=== PATIENT | male | born 1955 | race Caucasian/White ===

== ENCOUNTER 2018-11-22 09:06 | Inpatient (IN) | payer SELFPAY ==
[~2018-11-22] VITALS: Ht 160 cm; Wt 58.2 kg
[2018-11-22] MEDS ORDERED: SODIUM CHLORIDE 0.9% 1,000 ML IV ONE (09:32)
[2018-11-22] MEDS ORDERED: LORAZEPAM 2MG/ML CPJ IV STA (09:32)
[2018-11-22 10:09] LABS: BASOPHILS % 0.8 % (0.0-2.0); EOSINOPHILS % 7.1 % (0.0-5.0); HEMATOCRIT. 30.8 % (42.0-52.0); HEMOGLOBIN. 10.3 g/dL (14.0-18.0); LYMPHOCYTES % 11.7 % (20.0-50.0); MEAN CORPUSCULAR HEMOGLOBIN 28.6 pg (28.0-32.0); MEAN CORPUSCULAR VOLUME 85.2 fL (80.0-94.0); MEAN PLATELET VOLUME 7.9 fl (7.4-10.4); MONOCYTES % 9.4 % (2.0-8.0); PLATELET 120 x1000/uL (130-400); RED BLOOD CELL COUNT 3.62 mill/uL (4.7-6.1); RED CELL DISTRIBUTION WIDTH 23.4 % (11.6-14.6)
[2018-11-22 10:11] LABS: INR 1.2; PARTIAL THROMBOPLASTIN TIME 34.8 sec (23.4-31.0); PROTHROMBIN TIME 12.6 sec (9.6-11.0)
[2018-11-22 10:12] LABS: CHLORIDE 112 mEq/L (98-107)
[2018-11-22 10:16] LABS: ETHANOL BLOOD < 10 mg/dL
[2018-11-22 10:49] LABS: CLARITY URINE CLEAR (CLEAR); COLOR URINE YELLOW (YELLOW); KETONES URINE NEGATIVE (NEGATIVE); LEUKOCYTE ESTERASE URINE NEGATIVE (NEGATIVE); NITRITE URINE NEGATIVE (NEGATIVE); OCCULT BLOOD URINE NEGATIVE (NEGATIVE); PH URINE 7.5 (4.5-8.0); PROTEIN URINE TRACE (NEGATIVE); SPECIFIC GRAVITY URINE 1.017 (1.005-1.030)
[2018-11-22 11:10] LABS: *AMPHETAMINES SCREEN URINE NEGATIVE (NEGATIVE); *BARBITURATES SCREEN URINE NEGATIVE (NEGATIVE); *BENZODIAZEPINES SCREEN URINE NEGATIVE (NEGATIVE); *COCAINE SCREEN URINE NEGATIVE (NEGATIVE); METHADONE URINE SCREEN NEGATIVE (NEGATIVE); OPIATES URINE SCREEN NEGATIVE (NEGATIVE); PHENCYCLIDINE URINE SCREEN NEGATIVE (NEGATIVE)
[2018-11-22 11:11] LABS: CANNABINOID URINE SCREEN NEGATIVE (NEGATIVE)
[2018-11-22 12:16] LABS: PLATELET ESTIMATE DECREASED
[2018-11-22] MEDS ORDERED: LEVOFLOXACIN 750MG PREMIX 150 ML IV ONE (12:30)
[2018-11-22] MEDS ORDERED: SODIUM CHLORIDE 0.9% 1000ML BAG (SEPSIS BOLUS) IV ONE (12:30)
[2018-11-22] MEDS ORDERED: LACTULOSE 20G/30ML UDC PO ONE (12:30)
[2018-11-22 17:00] VITALS: BP 116/61
[2018-11-22 17:21] VITALS: BP 130/70
[2018-11-22] MEDS ORDERED: LACT10SO PO (17:47)
[2018-11-22 18:00] VITALS: BP 124/70
[2018-11-22] MEDS ORDERED: IPRATROPIUM/ALBUTEROL 0.5-3(2.5)MG/3ML NEB HHN PRN (18:15)
[2018-11-22] MEDS ORDERED: CLONIDINE 0.1MG TABLET PO PRN (18:15)
[2018-11-22] MEDS ORDERED: LEVOFLOXACIN 500MG PREMIX 100 ML IV SCH (18:15)
[2018-11-22] MEDS ORDERED: MAGNESIUM/ALUMINUM HYDROXIDE/SIMETHICONE 30ML UDC PO PRN (18:15)
[2018-11-22] MEDS ORDERED: DOCUSATE SODIUM 100MG CAPSULE PO PRN (18:15)
[2018-11-22] MEDS ORDERED: DIPHENHYDRAMINE 50MG/ML VIAL IV PRN (18:15)
[2018-11-22] MEDS ORDERED: ONDANSETRON HCL 4MG/2ML INJ IV PRN (18:15)
[2018-11-22] MEDS ORDERED: HYDROCODONE/ACETAMINOPHEN 10/325MG TABLET PO PRN (18:15)
[2018-11-22] MEDS ORDERED: GUAIFENESIN 200MG/10ML SUGAR FREE UDC PO PRN (18:15)
[2018-11-22] MEDS ORDERED: NA PHOS,M-B/NA PHOS,DI-BA ENEMA 118ML PR PRN (18:15)
[2018-11-22] MEDS ORDERED: MORPHINE SULFATE 2 MG/ML CPJ (NOT FOR IM USE) IV PRN (18:15)
[2018-11-22] MEDS ORDERED: ACETAMINOPHEN 325MG TABLET PO PRN (18:15)
[2018-11-22] MEDS ORDERED: LORAZEPAM 2MG/ML CPJ IV PRN (18:15)
[2018-11-22] MEDS ORDERED: DEXTROSE 50% WATER 50ML SYRINGE IV PRN (18:15)
[2018-11-22] MEDS ORDERED: HYDRALAZINE 20MG/ML VIAL IV PRN (18:15)
[2018-11-22 20:00] VITALS: BP 117/59
[2018-11-22] MEDS: ENOXAPARIN 40MG/0.4ML SYR SUBCUT SCH (21:15)
[2018-11-22] MEDS: INSULIN LISPRO 100 UNITS/ML SUBCUT SCH (21:17)
[2018-11-22] MEDS: BLOOD SUGAR DIAGNOSTIC STRIP TEST SCH (21:17)
[2018-11-22 22:00] VITALS: BP 109/62
[2018-11-22] MEDS: SODIUM CHLORIDE 0.9% INJ 3ML FLUSH IVF SCH (22:11)
[2018-11-23] VITALS (14 sets, daily range): BP systolic 97–130; BP diastolic 41–79
[2018-11-23] MEDS: LACTULOSE 20G/30ML UDC PO SCH ×5 (00:33→23:27)
[2018-11-23 00:36] LABS: CREATINE KINASE 106 IU/L (39-308)
[2018-11-23 00:38] LABS: CREATINE KINASE MB FRACTION 1.4 ng/mL (0.5-3.6)
[2018-11-23] MEDS: SODIUM CHLORIDE 0.9% INJ 3ML FLUSH IVF SCH ×3 (06:15→23:27)
[2018-11-23] MEDS: BLOOD SUGAR DIAGNOSTIC STRIP TEST SCH ×4 (06:16→20:27)
[2018-11-23 06:22] LABS: CHLORIDE 115 mEq/L (98-107)
[2018-11-23 06:26] LABS: BASOPHILS % 1.1 % (0.0-2.0); EOSINOPHILS % 8.4 % (0.0-5.0); HEMATOCRIT. 26.2 % (42.0-52.0); HEMOGLOBIN. 8.9 g/dL (14.0-18.0); LYMPHOCYTES % 13.7 % (20.0-50.0); MEAN CORPUSCULAR HEMOGLOBIN 28.8 pg (28.0-32.0); MEAN CORPUSCULAR VOLUME 84.7 fL (80.0-94.0); MEAN PLATELET VOLUME 7.6 fl (7.4-10.4); NEUTROPHILS % 64.8 % (40.0-76.0); PLATELET 97 x1000/uL (130-400); RED CELL DISTRIBUTION WIDTH 23.2 % (11.6-14.6)
[2018-11-23 06:33] LABS: CREATINE KINASE 108 IU/L (39-308); T4 FREE 1.12 ng/dL (0.76-1.46)
[2018-11-23 06:41] LABS: CREATINE KINASE MB FRACTION 1.2 ng/mL (0.5-3.6)
[2018-11-23] MEDS: INSULIN LISPRO 100 UNITS/ML SUBCUT SCH ×4 (07:20→20:27)
[2018-11-23] MEDS: ASPIRIN 81MG EC TABLET PO SCH (08:09)
[2018-11-23] MEDS ORDERED: LEVOFLOXACIN 250MG PREMIX 50 ML IV SCH (13:00)
[2018-11-23] MEDS ORDERED: AMA1 PO (16:57)
[2018-11-23] MEDS ORDERED: PROP10TA10 PO (16:57)
[2018-11-23] MEDS ORDERED: SITA50TA3 PO (16:57)
[2018-11-23] MEDS ORDERED: AMLO2.5T45 PO (16:57)
[2018-11-23] MEDS ORDERED: FURO20TA4 PO (16:57)
[2018-11-23] MEDS ORDERED: SPIR50TA5 PO (16:57)
[2018-11-23] MEDS ORDERED: FERR-71 PO (16:57)
[2018-11-23] MEDS ORDERED: METF500T PO (16:57)
[2018-11-23] MEDS ORDERED: OMEP40CA34 PO (16:57)
[2018-11-23] MEDS ORDERED: ATOR10TA69 PO (16:59)
[2018-11-23] MEDS: ENOXAPARIN 40MG/0.4ML SYR SUBCUT SCH (20:00)
[2018-11-24] VITALS (13 sets, daily range): BP systolic 93–124; BP diastolic 47–77
[2018-11-24 05:55] LABS: BASOPHILS % 0.8 % (0.0-2.0); EOSINOPHILS % 8.7 % (0.0-5.0); HEMOGLOBIN. 8.8 g/dL (14.0-18.0); LYMPHOCYTES % 14.8 % (20.0-50.0); MEAN CORPUSCULAR HEMOGLOBIN 28.8 pg (28.0-32.0); MEAN PLATELET VOLUME 7.7 fl (7.4-10.4); MONOCYTES % 11.4 % (2.0-8.0); NEUTROPHILS % 64.3 % (40.0-76.0); PLATELET 92 x1000/uL (130-400); RED BLOOD CELL COUNT 3.05 mill/uL (4.7-6.1); RED CELL DISTRIBUTION WIDTH 22.3 % (11.6-14.6)
[2018-11-24 06:03] LABS: CHLORIDE 113 mEq/L (98-107)
[2018-11-24] MEDS: LACTULOSE 20G/30ML UDC PO SCH ×3 (06:03→18:53)
[2018-11-24] MEDS: SODIUM CHLORIDE 0.9% INJ 3ML FLUSH IVF SCH ×3 (06:03→21:06)
[2018-11-24] MEDS: BLOOD SUGAR DIAGNOSTIC STRIP TEST SCH ×4 (06:07→21:06)
[2018-11-24] MEDS: INSULIN LISPRO 100 UNITS/ML SUBCUT SCH ×4 (07:20→21:00)
[2018-11-24] MEDS: ASPIRIN 81MG EC TABLET PO SCH (09:54)
[2018-11-24] MEDS: LEVOFLOXACIN 500MG PREMIX 100 ML IV SCH (13:52)
[2018-11-25] VITALS (10 sets, daily range): BP systolic 98–137; BP diastolic 44–109
[2018-11-25] MEDS: LACTULOSE 20G/30ML UDC PO SCH ×4 (00:16→18:46)
[2018-11-25] MEDS: BLOOD SUGAR DIAGNOSTIC STRIP TEST SCH ×4 (05:53→21:34)
[2018-11-25] MEDS: SODIUM CHLORIDE 0.9% INJ 3ML FLUSH IVF SCH ×3 (05:53→21:34)
[2018-11-25 06:54] LABS: BASOPHILS % 0.9 % (0.0-2.0); EOSINOPHILS % 10.7 % (0.0-5.0); HEMATOCRIT. 27.8 % (42.0-52.0); HEMOGLOBIN. 9.9 g/dL (14.0-18.0); LYMPHOCYTES % 14.1 % (20.0-50.0); MEAN CORPUSCULAR VOLUME 84.4 fL (80.0-94.0); MONOCYTES % 10.3 % (2.0-8.0); PLATELET 103 x1000/uL (130-400); RED BLOOD CELL COUNT 3.29 mill/uL (4.7-6.1); RED CELL DISTRIBUTION WIDTH 22.6 % (11.6-14.6)
[2018-11-25 06:58] LABS: CHLORIDE 111 mEq/L (98-107)
[2018-11-25] MEDS: INSULIN LISPRO 100 UNITS/ML SUBCUT SCH ×4 (07:20→21:45)
[2018-11-25] MEDS: ASPIRIN 81MG EC TABLET PO SCH (08:14)
[2018-11-25] MEDS: LEVOFLOXACIN 500MG PREMIX 100 ML IV SCH (12:07)
[2018-11-26] VITALS: BP 120/69
[2018-11-26] MEDS: LACTULOSE 20G/30ML UDC PO SCH ×4 (00:45→18:43)
[2018-11-26 04:00] VITALS: BP 112/68
[2018-11-26] MEDS: SODIUM CHLORIDE 0.9% INJ 3ML FLUSH IVF SCH ×2 (06:37→13:49)
[2018-11-26] MEDS: INSULIN LISPRO 100 UNITS/ML SUBCUT SCH ×3 (06:37→17:16)
[2018-11-26] MEDS: BLOOD SUGAR DIAGNOSTIC STRIP TEST SCH ×3 (06:37→17:11)
[2018-11-26 08:00] VITALS: BP 116/69
[2018-11-26] MEDS: ASPIRIN 81MG EC TABLET PO SCH (08:21)
[2018-11-26 12:00] VITALS: BP 124/70
[2018-11-26 15:40] VITALS: BP 119/66
[2018-11-26 16:00] VITALS: BP 119/66
[2018-11-26] MEDS: LEVOFLOXACIN 500MG PREMIX 100 ML IV SCH (16:07)
[2018-11-27] MEDS ORDERED: LEVOFLOXACIN 500MG TABLET PO SCH (11:00)
== END 2018-11-26 18:55 | disposition home or self-care (01) | DRG 52 ==
LOC: ER 09:21 → 3WST 13:13 → ENRESERV 15:16 → 3WST 19:37 → 5WST 11-25 14:41
PROVIDERS: ADMIT Internal Medicine; ATTEND Internal Medicine
DX: G93.41 Metabolic encephalopathy (principal); R65.11 Systemic inflammatory response syndrome (SIRS) of non-infectious origin with acute organ dysfunction; J69.0 Pneumonitis due to inhalation of food and vomit; J91.8 Pleural effusion in other conditions classified elsewhere; E72.20 Disorder of urea cycle metabolism, unspecified; R18.8 Other ascites; D64.9 Anemia, unspecified; K74.60 Unspecified cirrhosis of liver; F10.10 Alcohol abuse, uncomplicated; D69.6 Thrombocytopenia, unspecified; E11.9 Type 2 diabetes mellitus without complications; I10 Essential (primary) hypertension; Z79.84 Long term (current) use of oral hypoglycemic drugs; Z79.899 Other long term (current) drug therapy
CPT/HCPCS: 36415; 71045; 74176; 80048; 80305; 80320; 81003; 82140; 82550; 82553; 82962; 83605; 83735; 84439; 84443; 84484; 86850; 86900; 93005; 97161; 99291; J1650; J1815; J1956; J2060; J7030; G0480

== ENCOUNTER 2019-07-28 08:49 | Inpatient (IN) | payer MEDICARE, OTHER ==
[~2019-07-28] VITALS: Ht 167.6 cm; Wt 57.3 kg
[~2019-07-28 08:49] MED LIST: AMA1 PO; AMLO2.5T45 PO; ATOR10TA69 PO; FERR-71 PO; FURO20TA4 PO; LACT10SO PO; METF500T PO; OMEP40CA12 PO; PROP10TA10 PO; SITA50TA3 PO; SPIR50TA5 PO
[2019-07-28 09:22] LABS: BASOPHILS % 0.6 % (0.0-2.0); EOSINOPHILS % 2.1 % (0.0-5.0); HEMATOCRIT. 28.4 % (42.0-52.0); HEMOGLOBIN. 9.5 g/dL (14.0-18.0); LYMPHOCYTES % 7.1 % (20.0-50.0); MEAN CORPUSCULAR VOLUME 83.8 fL (80.0-94.0); MEAN PLATELET VOLUME 7.3 fl (7.4-10.4); MONOCYTES % 11.6 % (2.0-8.0); NEUTROPHILS % 78.6 % (40.0-76.0); PLATELET 180 x1000/uL (130-400); RED BLOOD CELL COUNT 3.38 mill/uL (4.7-6.1); RED CELL DISTRIBUTION WIDTH 17.2 % (11.6-14.6)
[2019-07-28 09:27] LABS: CHLORIDE 102 mEq/L (98-107)
[2019-07-28 09:31] LABS: ETHANOL BLOOD < 10 mg/dL
[2019-07-28] MEDS ORDERED: LACTULOSE 20G/30ML UDC PO ONE (10:00)
[2019-07-28 10:28] LABS: CLARITY URINE CLEAR (CLEAR); COLOR URINE YELLOW (YELLOW); KETONES URINE TRACE (NEGATIVE); LEUKOCYTE ESTERASE URINE TRACE (NEGATIVE); NITRITE URINE NEGATIVE (NEGATIVE); OCCULT BLOOD URINE NEGATIVE (NEGATIVE); PH URINE 5.5 (4.5-8.0); PROTEIN URINE TRACE (NEGATIVE); SPECIFIC GRAVITY URINE 1.014 (1.005-1.030); UROBILINOGEN URINE 0.2 E.U./dL (0.2-1.0)
[2019-07-28 10:58] LABS: *AMPHETAMINES SCREEN URINE NEGATIVE (NEGATIVE)
[2019-07-28 11:00] LABS: *BARBITURATES SCREEN URINE NEGATIVE (NEGATIVE); *BENZODIAZEPINES SCREEN URINE NEGATIVE (NEGATIVE); *COCAINE SCREEN URINE NEGATIVE (NEGATIVE); METHADONE URINE SCREEN NEGATIVE (NEGATIVE); OPIATES URINE SCREEN NEGATIVE (NEGATIVE)
[2019-07-28 11:01] LABS: CANNABINOID URINE SCREEN NEGATIVE (NEGATIVE); PHENCYCLIDINE URINE SCREEN NEGATIVE (NEGATIVE)
[2019-07-28] MEDS ORDERED: ONDANSETRON HCL 4MG/2ML INJ IV PRN (12:45)
[2019-07-28] MEDS ORDERED: ACETAMINOPHEN 325MG TABLET PO PRN (12:45)
[2019-07-28] MEDS ORDERED: HALOPERIDOL LACTATE 5MG/ML VIAL IM PRN (13:30)
[2019-07-28] MEDS ORDERED: SODIUM POLYSTYRENE SULFONATE 15 G/60 ML BOT PO ONE (14:00)
[2019-07-28 14:43] LABS: LDL CHOLESTEROL 44 mg/dL (5-100)
[2019-07-28 14:45] LABS: HDL CHOLESTEROL 58 mg/dL (40-59)
[2019-07-28] MEDS ORDERED: SODIUM POLYSTYRENE SULFONATE 15 G/60 ML BOT PO SCH (16:15)
[2019-07-28] MEDS ORDERED: LORAZEPAM 0.5MG TABLET PO PRN (17:00)
[2019-07-28 21:30] VITALS: BP 135/80
[2019-07-28 22:00] VITALS: BP 113/70
[2019-07-29] VITALS (11 sets, daily range): BP systolic 106–132; BP diastolic 52–80
[2019-07-29] MEDS: RISPERIDONE 1MG TABLET PO SCH ×3 (00:21→22:19)
[2019-07-29] MEDS: LACTULOSE 20G/30ML UDC PO SCH ×4 (00:22→22:18)
[2019-07-29 07:37] LABS: MEAN CORPUSCULAR HEMOGLOBIN 28.3 pg (28.0-32.0); MEAN CORPUSCULAR VOLUME 84.4 fL (80.0-94.0); MEAN PLATELET VOLUME 7.4 fl (7.4-10.4); PLATELET 143 x1000/uL (130-400); RED BLOOD CELL COUNT 2.84 mill/uL (4.7-6.1); RED CELL DISTRIBUTION WIDTH 17.5 % (11.6-14.6)
[2019-07-29 08:14] LABS: CHLORIDE 106 mEq/L (98-107)
[2019-07-29] MEDS: HEPARIN 5000 UNITS/ML VIAL SUBCUT SCH (09:32)
[2019-07-29 11:11] LABS: TOTAL IRON BINDING CAPACITY 368 ug/dL (250-450)
[2019-07-29 12:07] LABS: INR 1.1; PARTIAL THROMBOPLASTIN TIME 39.8 sec (23.4-31.0); PROTHROMBIN TIME 12.3 sec (9.6-11.0)
[2019-07-29 12:25] LABS: FERRITIN 57 ng/mL (22-322)
[2019-07-29 12:36] LABS: HEPATITIS B SURFACE ANTIGEN NEGATIVE
[2019-07-29 13:05] LABS: HEPATITIS A AB IGM NEGATIVE (NEGATIVE)
[2019-07-29] MEDS ORDERED: SODIUM BICARBONATE 4% (2.4MEQ) 5ML VIAL IV ONE (13:13)
[2019-07-29] MEDS ORDERED: LIDOCAINE HCL 1% 20ML VIAL (Pyxis) INJ ONE (13:13)
[2019-07-29 15:37] LABS: PLATELET ESTIMATE NORMAL
[2019-07-29] MEDS: PROPRANOLOL HCL 10MG TABLET PO SCH (22:19)
[2019-07-30] VITALS (12 sets, daily range): BP systolic 91–122; BP diastolic 57–74
[2019-07-30] MEDS: LACTULOSE 20G/30ML UDC PO SCH ×3 (06:21→22:10)
[2019-07-30 07:30] LABS: INR 1.2; PROTHROMBIN TIME 12.5 sec (9.6-11.0)
[2019-07-30 07:38] LABS: BASOPHILS % 0.8 % (0.0-2.0); EOSINOPHILS % 3.9 % (0.0-5.0); HEMATOCRIT. 24.9 % (42.0-52.0); HEMOGLOBIN. 8.4 g/dL (14.0-18.0); LYMPHOCYTES % 7.2 % (20.0-50.0); MEAN CORPUSCULAR HEMOGLOBIN 28.3 pg (28.0-32.0); MEAN CORPUSCULAR VOLUME 84.3 fL (80.0-94.0); MEAN PLATELET VOLUME 7.3 fl (7.4-10.4); NEUTROPHILS % 78.1 % (40.0-76.0); PLATELET 148 x1000/uL (130-400); RED BLOOD CELL COUNT 2.96 mill/uL (4.7-6.1); RED CELL DISTRIBUTION WIDTH 17.4 % (11.6-14.6)
[2019-07-30 07:51] LABS: CHLORIDE 108 mEq/L (98-107)
[2019-07-30] MEDS: RISPERIDONE 1MG TABLET PO SCH ×2 (09:46→21:53)
[2019-07-30] MEDS: PROPRANOLOL HCL 10MG TABLET PO SCH ×2 (09:46→21:00)
[2019-07-30] MEDS: ASPIRIN 81MG TABLET PO SCH (10:57)
[2019-07-30] MEDS: HEPARIN 5000 UNITS/ML VIAL SUBCUT SCH (21:51)
[2019-07-31] VITALS (11 sets, daily range): BP systolic 92–116; BP diastolic 39–68
[2019-07-31] MEDS: LACTULOSE 20G/30ML UDC PO SCH ×2 (05:32→15:02)
[2019-07-31 07:35] LABS: BASOPHILS % 1.2 % (0.0-2.0); HEMATOCRIT. 25.1 % (42.0-52.0); HEMOGLOBIN. 8.4 g/dL (14.0-18.0); LYMPHOCYTES % 8.7 % (20.0-50.0); MEAN CORPUSCULAR VOLUME 83.5 fL (80.0-94.0); MEAN PLATELET VOLUME 7.4 fl (7.4-10.4); MONOCYTES % 11.4 % (2.0-8.0); NEUTROPHILS % 72.7 % (40.0-76.0); PLATELET 146 x1000/uL (130-400)
[2019-07-31 07:39] LABS: INR 1.1; PROTHROMBIN TIME 11.4 sec (9.6-11.0)
[2019-07-31 07:47] LABS: CHLORIDE 105 mEq/L (98-107)
[2019-07-31] MEDS: HEPARIN 5000 UNITS/ML VIAL SUBCUT SCH (08:18)
[2019-07-31] MEDS: PROPRANOLOL HCL 10MG TABLET PO SCH (08:18)
[2019-07-31] MEDS: ASPIRIN 81MG TABLET PO SCH (08:19)
[2019-07-31] MEDS: RISPERIDONE 1MG TABLET PO SCH (08:19)
[2019-07-31] MEDS ORDERED: PROP10TA10 PO (16:39)
[2019-07-31] MEDS ORDERED: LACT10SO7 PO (16:39)
[2019-07-31] MEDS ORDERED: ASPI-1160 PO (16:39)
[2019-08-09] MEDS ORDERED: LACT10SO MT (10:50)
[2019-08-09] MEDS ORDERED: PROP10TA10 PO (10:50)
[2019-08-09] MEDS ORDERED: SPIR50TA5 PO (10:50)
[2019-08-09] MEDS ORDERED: FURO-151 MT (10:50)
[2019-08-09] MEDS ORDERED: OMEP40CA12 PO (10:50)
== END 2019-07-31 18:02 | disposition home or self-care (01) | DRG 441 ==
LOC: ER 08:49 → ENRESERV 19:20 → 3WST 20:51
PROVIDERS: ADMIT Internal Medicine; ATTEND Internal Medicine
PROC: 0W9G3ZZ Drainage of Peritoneal Cavity, Percutaneous Approach (ICD-10-PCS; principal; 2019-07-29)
DX: K72.90 Hepatic failure, unspecified without coma (principal); K76.7 Hepatorenal syndrome; G93.41 Metabolic encephalopathy; N17.9 Acute kidney failure, unspecified; J98.11 Atelectasis; I85.10 Secondary esophageal varices without bleeding; I74.5 Embolism and thrombosis of iliac artery; E87.1 Hypo-osmolality and hyponatremia; E72.20 Disorder of urea cycle metabolism, unspecified; E87.5 Hyperkalemia; K70.31 Alcoholic cirrhosis of liver with ascites; R16.1 Splenomegaly, not elsewhere classified; I12.9 Hypertensive chronic kidney disease with stage 1 through stage 4 chronic kidney disease, or unspecified chronic kidney disease; E11.22 Type 2 diabetes mellitus with diabetic chronic kidney disease; N18.9 Chronic kidney disease, unspecified; D64.9 Anemia, unspecified; E83.41 Hypermagnesemia; K80.20 Calculus of gallbladder without cholecystitis without obstruction; E87.70 Fluid overload, unspecified; F10.20 Alcohol dependence, uncomplicated; Z79.899 Other long term (current) drug therapy
CPT/HCPCS: 36415; 49083; 71045; 74176; 80053; 80061; 80076; 80305; 80320; 81003; 82105; 82140; 82248; 82728; 82962; 83540; 83550; 83615; 83735; 84484; 85025; 86705; 86709; 86803; 87340; 93005; 93306; 96372; 97116; 97162; 97166; 99285; J1630; J1644; J3490; G0480

== ENCOUNTER 2019-08-15 05:14 | Inpatient (IN) | payer MEDICARE, OTHER ==
[~2019-08-15] VITALS: Ht 165.1 cm; Wt 62.1 kg
[~2019-08-15 05:14] MED LIST changes: -AMLO2.5T45 PO; +ASPI-1160 PO; +FURO-151 MT; +LACT10SO MT; -LACT10SO PO; +LACT10SO7 PO; -PROP10TA10 PO
[2019-08-15 07:31] LABS: HEMATOCRIT. 27.9 % (42.0-52.0); HEMOGLOBIN. 9.5 g/dL (14.0-18.0); MEAN CORPUSCULAR HEMOGLOBIN 28.3 pg (28.0-32.0); MEAN CORPUSCULAR VOLUME 83.2 fL (80.0-94.0); MEAN PLATELET VOLUME 7.5 fl (7.4-10.4); PLATELET 163 x1000/uL (130-400); RED BLOOD CELL COUNT 3.35 mill/uL (4.7-6.1)
[2019-08-15 07:38] LABS: CHLORIDE 100 mEq/L (98-107)
[2019-08-15 07:39] LABS: PROTHROMBIN TIME 11.1 sec (9.6-11.0)
[2019-08-15] MEDS ORDERED: DEXTROSE 50% WATER 50ML SYRINGE IV ONE ×2 (08:00→11:15)
[2019-08-15 08:06] LABS: PLATELET ESTIMATE NORMAL
[2019-08-15] MEDS ORDERED: DEXTROSE 50% WATER 50ML SYRINGE IV NR (08:30)
[2019-08-15] MEDS ORDERED: LIDOCAINE HCL 1% 20ML VIAL (Pyxis) INJ ONE (08:48)
[2019-08-15] MEDS ORDERED: SODIUM BICARBONATE 4% (2.4MEQ) 5ML VIAL IV ONE (08:49)
[2019-08-15 12:01] VITALS: BP 102/58
[2019-08-15 12:10] VITALS: BP 102/58
[2019-08-15] MEDS ORDERED: DEXTROSE 50% WATER 50ML SYRINGE IV PRN (12:45)
[2019-08-15] MEDS ORDERED: DEXT 5%/0.45% NACL 500ML 500 ML IV ONE (12:45)
[2019-08-15] MEDS: LACTULOSE 20G/30ML UDC PO SCH ×2 (12:45→21:29)
[2019-08-15 16:00] VITALS: BP 104/61
[2019-08-15] MEDS: BLOOD SUGAR DIAGNOSTIC STRIP TEST SCH ×2 (17:19→21:29)
[2019-08-15] MEDS: INSULIN LISPRO 100 UNITS/ML SUBCUT SCH ×2 (17:20→21:31)
[2019-08-15] MEDS: OMEPRAZOLE 20MG CAPSULE EXTENDED RELEASE PO SCH (17:20)
[2019-08-15 18:08] LABS: HEMATOCRIT 24.8 % (42.0-52.0); HEMOGLOBIN 8.5 g/dL (14.0-18.0); MEAN CORPUSCULAR HEMOGLOBIN 28.9 pg (28.0-32.0); MEAN CORPUSCULAR VOLUME 83.8 fL (80.0-94.0); PLATELET 137 x1000/uL (130-400); RED BLOOD CELL COUNT 2.96 mill/uL (4.7-6.1); RED CELL DISTRIBUTION WIDTH 17.2 % (11.6-14.6)
[2019-08-15 18:15] LABS: CHLORIDE 99 mEq/L (98-107)
[2019-08-15 20:00] VITALS: BP 107/63
[2019-08-16] VITALS: BP 97/60
[2019-08-16 04:00] VITALS: BP 96/48
[2019-08-16 06:05] LABS: HEMOGLOBIN. 8.1 g/dL (14.0-18.0); MEAN CORPUSCULAR HEMOGLOBIN 28.1 pg (28.0-32.0); MEAN CORPUSCULAR VOLUME 82.9 fL (80.0-94.0); MEAN PLATELET VOLUME 7.4 fl (7.4-10.4); PLATELET 133 x1000/uL (130-400); RED BLOOD CELL COUNT 2.89 mill/uL (4.7-6.1); RED CELL DISTRIBUTION WIDTH 16.9 % (11.6-14.6)
[2019-08-16 07:14] LABS: CHLORIDE 101 mEq/L (98-107)
[2019-08-16] MEDS: BLOOD SUGAR DIAGNOSTIC STRIP TEST SCH ×4 (07:31→20:29)
[2019-08-16] MEDS: INSULIN LISPRO 100 UNITS/ML SUBCUT SCH ×4 (07:32→20:58)
[2019-08-16] MEDS: OMEPRAZOLE 20MG CAPSULE EXTENDED RELEASE PO SCH (07:58)
[2019-08-16] MEDS: LACTULOSE 20G/30ML UDC PO SCH ×4 (08:02→17:18)
[2019-08-16 08:09] VITALS: BP 95/58
[2019-08-16] MEDS: RIFAXIMIN 550 MG TABLET PO SCH ×2 (09:19→21:00)
[2019-08-16] MEDS: CHLORPROMAZINE HCL 25 MG TABLET PO PRN ×2 (09:19→17:17)
[2019-08-16 11:38] LABS: PLATELET ESTIMATE NORMAL
[2019-08-16 12:05] VITALS: BP 97/60
[2019-08-16 16:35] VITALS: BP 82/50
[2019-08-16 20:00] VITALS: BP 101/63
[2019-08-17] VITALS: BP 90/52
[2019-08-17 04:19] VITALS: BP 107/65
[2019-08-17] MEDS: INSULIN LISPRO 100 UNITS/ML SUBCUT SCH ×4 (05:48→22:41)
[2019-08-17] MEDS: BLOOD SUGAR DIAGNOSTIC STRIP TEST SCH ×4 (05:48→21:00)
[2019-08-17] MEDS: OMEPRAZOLE 20MG CAPSULE EXTENDED RELEASE PO SCH (06:28)
[2019-08-17 08:00] VITALS: BP 99/61
[2019-08-17] MEDS: LACTULOSE 20G/30ML UDC PO SCH ×3 (09:13→17:55)
[2019-08-17] MEDS: RIFAXIMIN 550 MG TABLET PO SCH ×2 (09:13→22:13)
[2019-08-17] MEDS ORDERED: CITRIC ACID/SODIUM CITRATE SOLN 30ML UDC PO NR (09:15)
[2019-08-17] MEDS: SODIUM CHLORIDE 0.45% 1,000 ML IV SCH (10:34)
[2019-08-17 12:00] VITALS: BP 96/59
[2019-08-17 16:00] VITALS: BP 102/60
[2019-08-17 20:42] VITALS: BP 101/66
[2019-08-18] VITALS: BP 103/53
[2019-08-18] MEDS: SODIUM CHLORIDE 0.45% 1,000 ML IV SCH ×2 (01:55→18:35)
[2019-08-18 04:00] VITALS: BP 107/61
[2019-08-18 06:17] LABS: HEMATOCRIT. 22.7 % (42.0-52.0); HEMOGLOBIN. 7.7 g/dL (14.0-18.0); MEAN CORPUSCULAR HEMOGLOBIN 28.4 pg (28.0-32.0); MEAN CORPUSCULAR VOLUME 83.5 fL (80.0-94.0); MEAN PLATELET VOLUME 7.6 fl (7.4-10.4); PLATELET 116 x1000/uL (130-400); RED BLOOD CELL COUNT 2.72 mill/uL (4.7-6.1); RED CELL DISTRIBUTION WIDTH 16.9 % (11.6-14.6)
[2019-08-18] MEDS: BLOOD SUGAR DIAGNOSTIC STRIP TEST SCH ×4 (07:37→21:24)
[2019-08-18] MEDS: INSULIN LISPRO 100 UNITS/ML SUBCUT SCH ×4 (07:38→21:29)
[2019-08-18 08:00] VITALS: BP 108/58
[2019-08-18] MEDS: RIFAXIMIN 550 MG TABLET PO SCH ×2 (08:32→21:25)
[2019-08-18] MEDS: OMEPRAZOLE 20MG CAPSULE EXTENDED RELEASE PO SCH (08:33)
[2019-08-18] MEDS: LACTULOSE 20G/30ML UDC PO SCH ×3 (08:38→17:24)
[2019-08-18 11:19] LABS: PLATELET ESTIMATE NORMAL
[2019-08-18] MEDS: CITRIC ACID/SODIUM CITRATE SOLN 30ML UDC PO SCH ×3 (11:23→17:24)
[2019-08-18 12:00] VITALS: BP 103/56
[2019-08-18 16:00] VITALS: BP 103/62
[2019-08-18 20:00] VITALS: BP 115/64
[2019-08-19] VITALS: BP 110/65
[2019-08-19 04:00] VITALS: BP 98/56
[2019-08-19] MEDS: SODIUM CHLORIDE 0.45% 1,000 ML IV SCH (06:11)
[2019-08-19] MEDS: OMEPRAZOLE 20MG CAPSULE EXTENDED RELEASE PO SCH (06:11)
[2019-08-19 06:18] LABS: HEMATOCRIT. 22.8 % (42.0-52.0); HEMOGLOBIN. 7.8 g/dL (14.0-18.0); INR 1.1; MEAN CORPUSCULAR HEMOGLOBIN 28.5 pg (28.0-32.0); MEAN CORPUSCULAR VOLUME 83.3 fL (80.0-94.0); MEAN PLATELET VOLUME 7.4 fl (7.4-10.4); PLATELET 130 x1000/uL (130-400); PROTHROMBIN TIME 11.7 sec (9.6-11.0); RED BLOOD CELL COUNT 2.74 mill/uL (4.7-6.1)
[2019-08-19] MEDS: BLOOD SUGAR DIAGNOSTIC STRIP TEST SCH ×4 (06:18→20:32)
[2019-08-19] MEDS: INSULIN LISPRO 100 UNITS/ML SUBCUT SCH ×4 (06:18→23:02)
[2019-08-19 08:00] VITALS: BP 104/59
[2019-08-19] MEDS: LACTULOSE 20G/30ML UDC PO SCH ×3 (09:00→17:33)
[2019-08-19] MEDS: CITRIC ACID/SODIUM CITRATE SOLN 30ML UDC PO SCH ×3 (09:00→17:33)
[2019-08-19] MEDS: RIFAXIMIN 550 MG TABLET PO SCH ×2 (09:00→20:32)
[2019-08-19] MEDS ORDERED: SODIUM BICARBONATE 4% (2.4MEQ) 5ML VIAL IV ONE (09:44)
[2019-08-19] MEDS ORDERED: LIDOCAINE HCL 1% 20ML VIAL (Pyxis) INJ ONE (09:44)
[2019-08-19 12:00] VITALS: BP 97/48
[2019-08-19] MEDS: SODIUM BICARBONATE 100 MEQ in SODIUM CHLORIDE 0.45% 1,000 ML IV SCH (12:57)
[2019-08-19 14:32] LABS: NUCLEATED RED BLOOD CELLS 1 /100 WBC
[2019-08-19 14:33] LABS: PLATELET ESTIMATE NORMAL
[2019-08-19 16:00] VITALS: BP 97/55
[2019-08-19 20:00] VITALS: BP 110/60
[2019-08-20] VITALS: BP 92/53
[2019-08-20 04:00] VITALS: BP 92/57
[2019-08-20] MEDS: SODIUM BICARBONATE 100 MEQ in SODIUM CHLORIDE 0.45% 1,000 ML IV SCH (04:24)
[2019-08-20] MEDS: BLOOD SUGAR DIAGNOSTIC STRIP TEST SCH ×4 (06:40→21:05)
[2019-08-20] MEDS: INSULIN LISPRO 100 UNITS/ML SUBCUT SCH ×4 (06:40→21:05)
[2019-08-20] MEDS: OMEPRAZOLE 20MG CAPSULE EXTENDED RELEASE PO SCH (06:40)
[2019-08-20 08:00] VITALS: BP 89/57
[2019-08-20 08:08] LABS: EOSINOPHILS % 5.8 % (0.0-5.0); HEMATOCRIT. 21.6 % (42.0-52.0); HEMOGLOBIN. 7.4 g/dL (14.0-18.0); LYMPHOCYTES % 7.8 % (20.0-50.0); MEAN CORPUSCULAR HEMOGLOBIN 28.7 pg (28.0-32.0); MEAN CORPUSCULAR VOLUME 83.2 fL (80.0-94.0); MEAN PLATELET VOLUME 7.2 fl (7.4-10.4); MONOCYTES % 9.7 % (2.0-8.0); NEUTROPHILS % 75.7 % (40.0-76.0); PLATELET 124 x1000/uL (130-400); RED BLOOD CELL COUNT 2.59 mill/uL (4.7-6.1); RED CELL DISTRIBUTION WIDTH 17.7 % (11.6-14.6)
[2019-08-20] MEDS: CITRIC ACID/SODIUM CITRATE SOLN 30ML UDC PO SCH ×3 (09:29→18:00)
[2019-08-20] MEDS: LACTULOSE 20G/30ML UDC PO SCH ×3 (09:29→18:00)
[2019-08-20] MEDS: RIFAXIMIN 550 MG TABLET PO SCH ×2 (09:29→20:44)
[2019-08-20 12:00] VITALS: BP 96/52
[2019-08-20 16:00] VITALS: BP 92/58
[2019-08-20 20:00] VITALS: BP 103/61
[2019-08-21] VITALS: BP 89/53
[2019-08-21] MEDS: SODIUM BICARBONATE 100 MEQ in SODIUM CHLORIDE 0.45% 1,000 ML IV SCH (02:19)
[2019-08-21 04:00] VITALS: BP 93/49
[2019-08-21] MEDS: OMEPRAZOLE 20MG CAPSULE EXTENDED RELEASE PO SCH (06:13)
[2019-08-21] MEDS: INSULIN LISPRO 100 UNITS/ML SUBCUT SCH ×2 (06:14→12:06)
[2019-08-21] MEDS: BLOOD SUGAR DIAGNOSTIC STRIP TEST SCH ×2 (06:14→11:50)
[2019-08-21 06:42] LABS: CLARITY URINE CLOUDY (CLEAR); COLOR URINE YELLOW (YELLOW); KETONES URINE TRACE (NEGATIVE); LEUKOCYTE ESTERASE URINE 1+ (NEGATIVE); NITRITE URINE NEGATIVE (NEGATIVE); OCCULT BLOOD URINE 3+ (NEGATIVE); PROTEIN URINE 2+ (NEGATIVE); SPECIFIC GRAVITY URINE 1.018 (1.005-1.030); UROBILINOGEN URINE 0.2 E.U./dL (0.2-1.0)
[2019-08-21 06:49] LABS: EOSINOPHILS % 6.1 % (0.0-5.0); HEMATOCRIT. 22.3 % (42.0-52.0); HEMOGLOBIN. 7.6 g/dL (14.0-18.0); LYMPHOCYTES % 7.7 % (20.0-50.0); MEAN CORPUSCULAR HEMOGLOBIN 28.7 pg (28.0-32.0); MEAN CORPUSCULAR VOLUME 83.7 fL (80.0-94.0); MEAN PLATELET VOLUME 7.5 fl (7.4-10.4); MONOCYTES % 10.9 % (2.0-8.0); NEUTROPHILS % 74.3 % (40.0-76.0); PLATELET 118 x1000/uL (130-400); RED BLOOD CELL COUNT 2.66 mill/uL (4.7-6.1); RED CELL DISTRIBUTION WIDTH 18.1 % (11.6-14.6)
[2019-08-21 08:00] VITALS: BP 90/56
[2019-08-21] MEDS: RIFAXIMIN 550 MG TABLET PO SCH (08:12)
[2019-08-21] MEDS: LACTULOSE 20G/30ML UDC PO SCH ×3 (08:12→17:15)
[2019-08-21] MEDS: CITRIC ACID/SODIUM CITRATE SOLN 30ML UDC PO SCH ×3 (08:12→17:15)
[2019-08-21] MEDS ORDERED: RIFA550T PO (11:35)
[2019-08-21] MEDS ORDERED: LACT10SO7 PO (11:35)
[2019-08-21] MEDS ORDERED: OMEP20CA14 PO (11:35)
[2019-08-21] MEDS ORDERED: CITR473S PO (11:35)
[2019-08-21 12:00] VITALS: BP 101/60
[2019-08-21 16:00] VITALS: BP 98/62
[2019-08-21 17:05] VITALS: BP 98/62
== END 2019-08-21 17:35 | disposition hospice, home (50) | DRG 432 ==
LOC: ER 05:14 → 6WST 09:23 → EDBEDREQTM 09:29 → EDBEDREQ 09:29 → ENRESERV 10:42 → 8WST 08-19 19:42
PROVIDERS: ADMIT Internal Medicine; ATTEND Internal Medicine
PROC: 0W9G3ZZ Drainage of Peritoneal Cavity, Percutaneous Approach (ICD-10-PCS; principal; 2019-08-15)
PROC: 0W9G3ZZ Drainage of Peritoneal Cavity, Percutaneous Approach (ICD-10-PCS; 2019-08-19)
DX: K70.31 Alcoholic cirrhosis of liver with ascites (principal); K85.90 Acute pancreatitis without necrosis or infection, unspecified; K76.7 Hepatorenal syndrome; E87.1 Hypo-osmolality and hyponatremia; E87.2 Acidosis; E46 Unspecified protein-calorie malnutrition; I74.5 Embolism and thrombosis of iliac artery; I85.10 Secondary esophageal varices without bleeding; N17.9 Acute kidney failure, unspecified; K72.90 Hepatic failure, unspecified without coma; E11.22 Type 2 diabetes mellitus with diabetic chronic kidney disease; D63.8 Anemia in other chronic diseases classified elsewhere; F10.10 Alcohol abuse, uncomplicated; I12.9 Hypertensive chronic kidney disease with stage 1 through stage 4 chronic kidney disease, or unspecified chronic kidney disease; R16.1 Splenomegaly, not elsewhere classified; D69.6 Thrombocytopenia, unspecified; I25.10 Atherosclerotic heart disease of native coronary artery without angina pectoris; F03.90 Unspecified dementia, unspecified severity, without behavioral disturbance, psychotic disturbance, mood disturbance, and anxiety; N18.9 Chronic kidney disease, unspecified; Z79.84 Long term (current) use of oral hypoglycemic drugs; Z79.899 Other long term (current) drug therapy; Z87.19 Personal history of other diseases of the digestive system; Z68.22 Body mass index [BMI] 22.0-22.9, adult
CPT/HCPCS: 36415; 49083; 76705; 80048; 80053; 80061; 81003; 82105; 82140; 82533; 82550; 82962; 83930; 84443; 85025; 85027; 99285; J1815; J3490; Q0161